=== PATIENT | female | born 1955 | race African-American/Black ===

== ENCOUNTER 2017-04-06 11:24 | Emergency (ER) | payer MEDICAID ==
[~2017-04-06] VITALS: Ht 172.7 cm; Wt 59.0 kg
[~2017-04-06 11:24] MED LIST: KEFLEX500 MG ORAL; TRAMADOL HCL50 MG ORAL
--- NOTE | 2017-04-06 12:13 | Emergency Room Report ---
History of Present Illness General Chief Complaint: Upper Respiratory Illness Source: Patient, Medical Record Present Illness HPI 61 YO Female presents to the ED c/o 02/27 in severity abdominal pain localized in the epigastric area, described as constant and sharp/burning x 2 days. pt. reports having abdominal bloating x 1 week prior with progressive increase of her symptoms and frequency x 2 days. denies recent travel. denies N /V/F/C, constipation or diarrhea, blood in the stool or dark tarry stools. pt. reports taking magnesium sulfate PO with no relief of her symptoms. Denies CP, Palpitations, LOC, AMS, dizziness, Changes in Vision, Sensation, paresthesias, or a sudden severe headache. Reports hx of HTN and DM. Allergies: Coded Allergies: No Known Allergies (Unverified , 03/03/16) Patient History Past Medical History: see triage record Past Surgical History: none Pertinent Family History: none Now: No Reviewed Nursing Documentation: PMH: Agreed, PSxH: Agreed Nursing Documentation-PMH Past Medical History: No History, Except For Hx Cardiac Problems: No Hx Hypertension: Yes Hx Pacemaker: No Hx Asthma: No Hx COPD: No Hx Diabetes: Yes Hx Cancer: No Hx Gastrointestinal Problems: No Hx Dialysis: No History Of Psychiatric Problem: No Hx Neurological Problems: No Hx Cerebrovascular Accident: No Hx Seizures: No Review of Systems All Other Systems: negative except mentioned in HPI Physical Exam Vital Signs Date Time Temp Pulse Resp B/P (MAP) Pulse Ox O2 Delivery O2 Flow Rate FiO2 04/06/17 11:33 98.1 85 16 157/115 97 Room Air Sp02 EP Interpretation: reviewed, normal General Appearance: alert, GCS 15, non-toxic, mild distress, obese Head: normocephalic, atraumatic ENT: hearing grossly normal, normal pharynx, no angioedema, normal voice, uvula midline Neck: full range of motion Respiratory: chest non-tender, lungs clear, normal breath sounds, no wheezing, speaking full sentences Cardiovascular #1: regular rate, rhythm, no edema Gastrointestinal: normal bowel sounds, soft, no guarding, no pulsatile mass, no rebound, tenderness - Epigastric TTP only. Rectal: deferred Genitourinary: normal inspection, no CVA tenderness Musculoskeletal: back normal, gait/station normal, normal range of motion, non- tender Neurologic: alert, oriented x3, responsive, motor strength/tone normal, speech normal Skin: normal color, no rash, warm/dry, well hydrated Medical Decision Making PA Attestation Dr. Lay is my supervising Physician whom patient management has been discussed with. Diagnostic Impression: Primary Impression: Abdominal pain Qualified Codes: R10.13 - Epigastric pain ER Course 61 YO Female presents to the ED c/o 02/27 in severity abdominal pain localized in the epigastric area, described as constant and sharp/burning x 2 days. pt. reports having abdominal bloating x 1 week prior with progressive increase of her symptoms and frequency x 2 days. denies recent travel. denies N /V/F/C, constipation or diarrhea, blood in the stool or dark tarry stools. pt. reports taking magnesium sulfate PO with no relief of her symptoms. Denies CP, Palpitations, LOC, AMS, dizziness, Changes in Vision, Sensation, paresthesias, or a sudden severe headache. Reports hx of HTN and DM. Ddx considered but are not limited to Diverticulitis, acute appy, diarrhea,UC, PUD, GE, pancreatitis, gallstone, AR, AAA Vital signs: are WNL, pt. is afebrile H&PE are most consistent with gastritis, will do basic laboratory and cardiac work up due to pt. age and RF's ORDERS: -CBC, CMP, lipase: UNREMARKABLE -Troponin: 0.00 -CXR: poorly visualized film, no acute pathology, no effusion, no infiltrates per preliminary read in the ED, my interpretation was also d/w Dr. Chaney. -EK NSR, no acute ST changes, inverted T-wave in AvL per Dr. Lay. ED INTERVENTIONS: --- Morphine IV - GI Cocktail -Pt is given ED return precautions for worsening or new symptoms. D/w pt. and daughter that she will be d/c with conservative Treatments, and to follow up with PCP, pt. may require GI consult if symptoms persist. DISCHARGE: At this time pt. is stable for d/c to home. Will provide printed patient care instructions, and any necessary prescriptions. Care plan and follow up instructions have been discussed with the patient prior to discharge. Labs Test 04/06/17 12:55 White Blood Count 10.4 K/UL (4.8-10.8) Red Blood Count 5.91 M/UL (4.20-5.40) Hemoglobin 17.5 G/DL (12.0-16.0) Hematocrit 53.5 % (37.0-47.0) Mean Corpuscular Volume 91 FL (80-99) Mean Corpuscular Hemoglobin 29.6 PG (27.0-31.0) Mean Corpuscular Hemoglobin Concent 32.7 G/DL (32.0-36.0) Red Cell Distribution Width 15.7 % (11.6-14.8) Platelet Count 358 K/UL (150-450) Mean Platelet Volume 9.3 FL (6.5-10.1) Neutrophils (%) (Auto) 64.7 % (45.0-75.0) Lymphocytes (%) (Auto) 24.8 % (20.0-45.0) Monocytes (%) (Auto) 5.9 % (1.0-10.0) Eosinophils (%) (Auto) 3.5 % (0.0-3.0) Basophils (%) (Auto) 1.1 % (0.0-2.0) Sodium Level 139 MMOL/L (136-145) Potassium Level 4.3 MMOL/L (3.5-5.1) Chloride Level 102 MMOL/L (98-107) Carbon Dioxide Level 30 MMOL/L (21-32) Anion Gap 7 mmol/L (5-15) Blood Urea Nitrogen 20 mg/dL (7-18) Creatinine 1.6 MG/DL (0.55-1.30) Estimat Glomerular Filtration Rate 39.5 mL/min (>60) Glucose Level 150 MG/DL (74-106) Calcium Level 9.4 MG/DL (8.5-10.1) Total Bilirubin 0.6 MG/DL (0.2-1.0) Aspartate Amino Transf (AST/SGOT) 30 U/L (15-37) Alanine Aminotransferase (ALT/SGPT) 51 U/L (12-78) Alkaline Phosphatase 86 U/L (46-116) Troponin I 0.000 ng/mL (0.000-0.056) Total Protein 7.9 G/DL (6.4-8.2) Albumin 3.5 G/DL (3.4-5.0) Globulin 4.4 g/dL Lipase 382 U/L (73-393) EKG Diagnostic Results EKG Time: 12:05 EP Interpretation: Dr. Lay Rate: normal - 78 BPM Rhythm: NSR ST Segments: no acute changes Other Impression inverted T-wave in AVL. ASA given to the pt in ED: No PA Scribe Text this interpretation was scribed by LAINE Ellison Chest X-Ray Diagnostic Results Chest X-Ray Diagnostic Results : Chest X-Ray Ordered: Yes # of Views/Limited/Complete: 1 View Indication: Chest Pain EP Interpretation: Yes PA Xray: Interpretation reviewed, by supervising MD, and agrees with findings. Interpretation: no consolidation, no effusion, no pneumothorax, no acute cardiopulmonary disease Impression: No acute disease Electronically Signed by: Hermila Ellison PA-C Last Vital Signs Date Time Temp Pulse Resp B/P (MAP) Pulse Ox O2 Delivery O2 Flow Rate FiO2 04/06/17 11:33 97.3 76 16 119/64 98 Room Air Disposition: HOME, SELF-CARE Condition: Stable Scripts Mag Hydrox/Al Hydrox/Simeth (ALUM-MAG HYDROXIDE-SIMETH LIQ) 360 Ml Oral.susp 10 ML PO BID, #360 ML Prov: Hermila Ellison 04/06/17 Lidocaine HCl (Lidocaine HCl Viscous) 100 Ml Solution 10 ML MM TID, #120 ML Prov: Hermila Ellison 04/06/17 Ranitidine Hcl* (ZANTAC*) 150 Mg Tablet 150 MG ORAL TWICE A DAY for 14 Days, #28 TAB Prov: Hermila Ellison 04/06/17 Patient Instructions: Gastroesophageal Reflux Disease, Adult Additional Instructions: Take medications as directed. Follow up with a Primary Care Provider in 3 days, even if your symptoms have resolved. --Please review list of primary care clinics, if you do not already have a primary care provider Return sooner to ED if new symptoms occur, or current symptoms become worse. - Please note that this Emergency Department Report was dictated using [employer] professional technology software, occasionally this can lead to erroneous entry secondary to interpretation by the dictation equipment. Hermila Ellison Apr 06, 2017 12:13
[2017-04-06] MEDS: Morphine Sulfate 4mg/ml Inj IVP ONE (12:58)
[2017-04-06 13:00] VITALS: BP 144/96
[2017-04-06 13:11] LABS: BASOPHILS % (AUTO) 1.1 % (0.0-2.0); EOSINOPHILS % (AUTO) 3.5 % (0.0-3.0); LYMPHOCYTES % (AUTO) 24.8 % (20.0-45.0); MEAN CORPUSCULAR HEMOGLOBIN 29.6 PG (27.0-31.0); MEAN CORPUSCULAR HGB CONC 32.7 G/DL (32.0-36.0); MEAN CORPUSCULAR VOLUME 91 FL (80-99); MEAN PLATELET VOLUME 9.3 FL (6.5-10.1); MONOCYTES % (AUTO) 5.9 % (1.0-10.0); NEUTROPHILS % (AUTO) 64.7 % (45.0-75.0); PLATELET COUNT 358 K/UL (150-450); RED BLOOD COUNT 5.91 M/UL (4.20-5.40); RED CELL DISTRIBUTION WIDTH 15.7 % (11.6-14.8); WHITE BLOOD COUNT 10.4 K/UL (4.8-10.8)
[2017-04-06 14:12] LABS: CARBON DIOXIDE 30 MMOL/L (21-32); CHLORIDE 102 MMOL/L (98-107); POTASSIUM 4.3 MMOL/L (3.5-5.1); SODIUM 139 MMOL/L (136-145)
[2017-04-06 14:13] LABS: ALANINE AMINOTRANSFERASE 51 U/L (12-78); ANION GAP 7 mmol/L (5-15); ASPARTATE AMINO TRANSFERASE 30 U/L (15-37); CALCIUM 9.4 MG/DL (8.5-10.1); CREATININE 1.6 MG/DL (0.55-1.30); GLOMERULAR FILTRATION RATE 39.5 mL/min (>60); LIPASE 382 U/L (73-393); TOTAL PROTEIN 7.9 G/DL (6.4-8.2)
[2017-04-06] MEDS ORDERED: LIDOCAINE20 MG/1 M1 MM (14:41)
[2017-04-06] MEDS ORDERED: ALUM-MAG HYDRO360 ML PO (14:41)
[2017-04-06] MEDS ORDERED: ZANTAC150 MG ORAL (14:41)
[2017-04-06] MEDS: Lidocaine 2% Visc 15ml soln ORAL ONE (14:42)
[2017-04-06] MEDS: Mylanta II UD 30ml ORAL ONE (14:42)
[2017-04-06 14:53] VITALS: BP 148/99
--- NOTE | 2017-04-06 15:41 | Diagnostic Imaging Report ---
Indication: PAIN, shortness of breath Technique: One view of the chest Comparison: none Findings: By habitus limits evaluation. There is mild generalized initial prominence, may be in part artifactual related to body habitus. No focal airspace consolidation. Pleural spaces are clear. Impression: Equivocal mild interstitial disease, acuity indeterminate if real. Correlate with clinical findings No acute process otherwise
== END 2017-04-06 14:53 | disposition home or self-care (01) ==
LOC: EMR 12:23
DX: I10 Essential (primary) hypertension (principal); E11.9 Type 2 diabetes mellitus without complications
CPT/HCPCS: 36415; 71010; 80053; 83690; 84484; 85025; 96374; 99284; J2270

== ENCOUNTER 2017-05-27 18:19 | Emergency (ER) | payer MEDICAID ==
[~2017-05-27] VITALS: Ht 165.1 cm; Wt 147.4 kg
[~2017-05-27 18:19] MED LIST changes: +ALUM-MAG HYDRO360 ML PO; +LIDOCAINE20 MG/1 M1 MM; +ZANTAC150 MG ORAL
[2017-05-27] MEDS ORDERED: AMLODIPINE BES2.5 MG ORAL (18:43)
[2017-05-27] MEDS ORDERED: GLIPIZIDE5 MG ORAL (18:43)
[2017-05-27] MEDS ORDERED: LISINOPRIL5 MG ORAL (18:43)
[2017-05-27] MEDS ORDERED: Ketorolac 30mg Inj IM ONE (18:45)
--- NOTE | 2017-05-27 19:08 | Emergency Room Report ---
History of Present Illness General Chief Complaint: Multiple Trauma/Fall Source: Patient Present Illness HPI 61-year-old female, history of hypertension, presenting with left-sided rib pain. Patient states that yesterday she tripped and fell onto her left side, there is no head trauma or LOC. Since then patient has had pain to her left side, worse with movement or getting up. Patient states that she took a [place] given by her sister, which helped with the pain but put her to sleep Allergies: Coded Allergies: No Known Allergies (Unverified , 03/03/16) Patient History Past Medical History: see triage record Past Surgical History: none Pertinent Family History: none Last Menstrual Period: Post Reviewed Nursing Documentation: PMH: Agreed, PSxH: Agreed Nursing Documentation-PMH Hx Cardiac Problems: No Hx Hypertension: Yes Hx Pacemaker: No Hx Asthma: No Hx COPD: No Hx Diabetes: Yes Hx Cancer: No Hx Gastrointestinal Problems: No Hx Dialysis: No Hx Neurological Problems: No Hx Cerebrovascular Accident: No Hx Seizures: No Review of Systems All Other Systems: negative except mentioned in HPI Physical Exam Vital Signs Date Time Temp Pulse Resp B/P (MAP) Pulse Ox O2 Delivery O2 Flow Rate FiO2 05/27/17 18:32 98.6 90 25 158/100 97 Room Air Sp02 EP Interpretation: reviewed, normal General Appearance: alert, GCS 15, non-toxic, mild distress Head: normocephalic, atraumatic Eyes: bilateral eye normal inspection, bilateral eye PERRL, bilateral eye EOMI ENT: normal ENT inspection, normal pharynx, normal voice, moist mucus membranes Neck: normal inspection, full range of motion, supple Respiratory: normal inspection, lungs clear, normal breath sounds, no respiratory distress, no retraction, no wheezing, speaking full sentences, chest symmetrical Cardiovascular #1: normal inspection, regular rate, rhythm, no edema, normal capillary refill Cardiovascular #2: 2+ radial (R), 2+ radial (L) Gastrointestinal: normal inspection, non tender, soft, non-distended, no guarding Musculoskeletal: back normal, normal range of motion, other - L sided rib tenderness Neurologic: normal inspection, alert, oriented x3, responsive, motor strength/ tone normal, sensory intact, normal gait, speech normal Psychiatric: normal inspection, judgement/insight normal, memory normal Skin: normal inspection, normal color, no rash, warm/dry, well hydrated, normal turgor Medical Decision Making Diagnostic Impression: Primary Impression: Fall Additional Impression: Rib contusion ER Course 61-year-old female with rib pain after fall DDX: Contusion, unlikely to be fractured No flail chest, patient is speaking complete sentences, nonrespiratory distress Plan: X-ray and pain control ER course: Patient has remained stable during ED stay. Vital signs stable, no respiratory distress Disposition: Patient is to be discharged to home. Prescriptions given are Motrin Patient is instructed to follow up with their primary care doctor within 5 days. Please note that this Emergency Department Report was dictated using [employer] worker technology software, occasionally this can lead to erroneous entry secondary to interpretation by the dictation equipment Rhythm Strip EP Interpretation: Yes Rate: 76 Rhythm: NSR, no PVCs, no ectopy Chest X-ray CXR: Ordered: Yes 1 view Indication: Chest pain EP interpretation: Yes Interpretation: no fx, No consolidation, no effusion, no PTX, no acute cardiopulmonary disease Impression: No acute disease Electronically signed by Ileana Lay MD Last Vital Signs Date Time Temp Pulse Resp B/P (MAP) Pulse Ox O2 Delivery O2 Flow Rate FiO2 05/27/17 18:32 98.6 90 25 158/100 97 Room Air Condition: Improved Scripts Ibuprofen* (MOTRIN*) 600 Mg Tablet 600 MG ORAL Q8H Y for For Pain, #30 TAB 0 Refills Prov: Ileana Lay M.D. 05/27/17 Patient Instructions: Rib Contusion Ileana Lay M.D. May 27, 2017 19:08
[2017-05-27] MEDS ORDERED: IBUPROFEN600 MG ORAL (19:16)
[2017-05-27 19:35] VITALS: BP 158/100
--- NOTE | 2017-05-28 21:48 | Diagnostic Imaging Report ---
Indication: Chest pain Comparison: None A single view chest radiograph was obtained. Findings: Cardiomediastinal appearance is within normal limits for age. Left hilar calcifications noted. Pulmonary vascularity is appropriate. The diaphragmatic contour is smooth and costophrenic angles are sharp. No pleural effusions are identified. The bones are unremarkable. Impression: No acute findings Old granulomatous disease
== END 2017-05-27 19:35 | disposition home or self-care (01) ==
LOC: EMR 18:49
DX: S20.212A Contusion of left front wall of thorax, initial encounter (principal); W01.0XXA Fall on same level from slipping, tripping and stumbling without subsequent striking against object, initial encounter; Y93.9 Activity, unspecified; Y99.9 Unspecified external cause status; R07.81 Pleurodynia; I10 Essential (primary) hypertension; E11.9 Type 2 diabetes mellitus without complications
CPT/HCPCS: 71045; 96372; 99283; J1885